=== PATIENT | male | born 1980 | race Two or more races ===

== ENCOUNTER 2024-02-08 18:29 | Inpatient (IN) | payer OTHER ==
[~2024-02-08] VITALS: Ht 177.8 cm; Wt 79.9 kg
[2024-02-08 20:09] LABS: BASOPHILS # (AUTO) 0.1 X10'3 (0-0.2); BASOPHILS % (AUTO) 1.1 % (0-1); EOSINOPHILS # (AUTO) 0.1 X10'3 (0-0.9); EOSINOPHILS % (AUTO) 1.6 % (0-6); HEMATOCRIT 40.6 % (42.0-52.0); HEMOGLOBIN 14.4 g/dl (14.0-17.9); LYMPHOCYTES # (AUTO) 1.9 X10'3 (1.1-4.8); LYMPHOCYTES % (AUTO) 26.1 % (21-51); MEAN CORPUSCULAR HEMOGLOBIN 37.2 PG (27.0-31.0); MEAN CORPUSCULAR HGB CONC 35.3 g/dL (33.0-36.5); MEAN CORPUSCULAR VOLUME 105.3 FL (78-98); MEAN PLATELET VOLUME 8.2 FL (7.4-10.4); MONOCYTES # (AUTO) 0.6 X10'3 (0-0.9); MONOCYTES % (AUTO) 8.1 % (2-12); NEUTROPHILS # (AUTO) 4.6 X10'3 (1.8-7.7); NEUTROPHILS % (AUTO) 63.1 % (42-75); PLATELET COUNT 190 X10'3 (140-440); RED BLOOD COUNT 3.86 X10'6 (4.70-6.10); RED CELL DISTRIBUTION WIDTH 15.5 % (11.5-14.5); WHITE BLOOD COUNT 7.3 X10'3 (4.5-11.0)
[2024-02-08 20:15] LABS: BILIRUBIN,URINE NEGATIVE (Neg); CLARITY,URINE SLIGHTLY CLOUDY (Clear); COLOR,URINE YELLOW (Yellow); GLUCOSE, URINE NEGATIVE (Neg); KETONES,URINE TRACE mg/dl (Neg); LEUKOCYTE ESTERASE ,URINE NEGATIVE (Neg); NITRITES, URINE NEGATIVE (Neg); OCCULT BLOOD,URINE NEGATIVE (Neg); PH,URINE 5.5 (4.8-8.0); PROTEIN,URINE TRACE mg/dl (Neg); UROBILINOGEN,URINE 0.2 E.U/dL (0.2-1.0)
[2024-02-08 20:19] LABS: UA COLLECTION TYPE VOIDED
[2024-02-08 20:21] LABS: ALBUMIN 4.2 G/DL (3.4-5.0); ANION GAP 17 (8-16); BLOOD UREA NITROGEN 11 MG/DL (7-18); BUN/CREATININE RATIO 6.5 (10.0-20.0); CALCIUM 9.5 MG/DL (8.5-10.1); CHLORIDE 96 MMOL/L (99-107); ETHANOL 253 MG/DL (<10); GLUCOSE 110 MG/DL (70-104); POTASSIUM 3.2 MMOL/L (3.5-5.1); SODIUM 136 MMOL/L (135-145); THYROID STIMULATING HORMONE 1.26 ulU/ml (0.34-4.50); TOTAL CARBON DIOXIDE 23.5 MMOL/L (24-32); eCRCL 59 ML/MIN; eGFR 45 ML/MIN
[2024-02-08 20:29] LABS: URINE AMPHETAMINE SCREEN NEGATIVE (Neg); URINE BARBITUATE SCREEN NEGATIVE (Neg); URINE BENZODIAZEPINES SCREEN NEGATIVE (Neg); URINE CANNABINOID SCREEN NEGATIVE (Neg); URINE COCAINE SCREEN NEGATIVE (Neg); URINE METHADONE SCREEN NEGATIVE (Neg); URINE OPIATE SCREEN NEGATIVE (Neg); URINE PHENCYCLIDINE SCREEN NEGATIVE (Neg)
[2024-02-08 20:30] LABS: BACTERIA,URINE FEW /HPF (Neg); RBC,URINE NONE SEEN /HPF (0-2); SQUAMOUS EPITHELIAL CELL,UR FEW /LPF (FEW); WBC,URINE 0-4 /HPF (0-4)
[2024-02-08 20:44] LABS: ALANINE AMINOTRANSFERASE 60 U/L (12-78); ALBUMIN/GLOBULIN RATIO 1.4 (1.1-1.5); ALKALINE PHOSPHATASE 113 IU/L (46-116); ASPARTATE AMINO TRANSFERASE 100 U/L (10-37); BILIRUBIN,TOTAL 0.6 MG/DL (0.1-1.0); TOTAL PROTEIN 7.3 G/DL (6.4-8.2)
[2024-02-08] MEDS ORDERED: LISI40TA13 PO (23:47)
[2024-02-09] MEDS ORDERED: potassium Cl 20 mEq SR tablet PO PRN (00:45)
[2024-02-09] MEDS ORDERED: magnesium sulf-water 4G/100mL 100 ML IV PRN (00:45)
[2024-02-09] MEDS ORDERED: dextrose 50%-water 50ml dispensing syringe IV PRN (00:45)
[2024-02-09] MEDS ORDERED: potassium Cl 40MEQ/1/2NS 520ml 520 ML IV PRN (00:45)
[2024-02-09] MEDS ORDERED: acetaminophen 325mg tablet PO PRN (00:45)
[2024-02-09] MEDS ORDERED: magnesium sulf-water 2g/50mL 50 ML IV PRN (00:45)
[2024-02-09] MEDS ORDERED: loperamide 2mg capsule PO PRN (00:45)
[2024-02-09] MEDS ORDERED: dicyclomine 10 MG capsule PO PRN (00:45)
[2024-02-09] MEDS ORDERED: magnesium Cl slow-release 64mg tablet PO PRN (00:45)
[2024-02-09] MEDS ORDERED: haloperidol lactate 5mg/ml inj IM PRN (00:45)
[2024-02-09] MEDS: ringers solution, lacted 1,000 ML IV SCH (01:18)
[2024-02-09] MEDS: diazepam 5mg tablet PO ONE ×2 (01:20→09:08)
[2024-02-09 01:43] LABS: HEMOGLOBIN A1C 4.7 % (4.5-6.2)
[2024-02-09] MEDS: tizanidine 4mg tablet PO ONE (01:43)
[2024-02-09] MEDS: ringers solution, lacted 1,000 ML IV STA (05:19)
[2024-02-09] MEDS: K and/or MAG REPLACEMENT MC SCH (08:00)
[2024-02-09] MEDS: folic acid 1mg/0.2ml inj IV SCH (09:07)
[2024-02-09] MEDS: lisinopril 20mg tablet PO SCH (09:07)
[2024-02-09] MEDS: multivitamins, therapeutics tablet PO SCH (09:08)
[2024-02-09] MEDS: nicotine 7mg patch - 24hr TD SCH (09:08)
[2024-02-09] MEDS: potassium Cl 20 mEq SR tablet PO PRN (09:08)
[2024-02-09] MEDS: thiamine 100mg/ml 2ml inj. IV SCH (09:08)
[2024-02-09 19:20] VITALS: BP 139/85; PULSE 83; RESP 16; TEMP 98.8; O2SAT 99
[2024-02-09 20:00] VITALS: RESP 18; O2SAT 96
[2024-02-09] MEDS ORDERED: temazepam 15mg capsule PO PRN (21:00)
[2024-02-09 22:00] VITALS: BP 146/88; PULSE 71; RESP 16; TEMP 98.3; O2SAT 98
[2024-02-10] MEDS: LORazepam 2 mg/ml vial IV PRN ×2 (00:08→12:25)
[2024-02-10 08:00] VITALS: RESP 16; O2SAT 99
[2024-02-10 09:14] LABS: BASOPHILS # (AUTO) 0.1 X10'3 (0-0.2); BASOPHILS % (AUTO) 1.1 % (0-1); EOSINOPHILS # (AUTO) 0.1 X10'3 (0-0.9); EOSINOPHILS % (AUTO) 2.2 % (0-6); HEMATOCRIT 35.8 % (42.0-52.0); HEMOGLOBIN 12.7 g/dl (14.0-17.9); LYMPHOCYTES # (AUTO) 1.3 X10'3 (1.1-4.8); LYMPHOCYTES % (AUTO) 22.2 % (21-51); MEAN CORPUSCULAR HEMOGLOBIN 38.3 PG (27.0-31.0); MEAN CORPUSCULAR HGB CONC 35.4 g/dL (33.0-36.5); MEAN CORPUSCULAR VOLUME 108.3 FL (78-98); MONOCYTES # (AUTO) 0.5 X10'3 (0-0.9); MONOCYTES % (AUTO) 8.3 % (2-12); NEUTROPHILS % (AUTO) 66.2 % (42-75); PLATELET COUNT 144 X10'3 (140-440); RED BLOOD COUNT 3.31 X10'6 (4.70-6.10)
[2024-02-10 09:24] LABS: ALANINE AMINOTRANSFERASE 48 U/L (12-78); ALBUMIN 3.4 G/DL (3.4-5.0); ALBUMIN/GLOBULIN RATIO 1.3 (1.1-1.5); ALKALINE PHOSPHATASE 72 IU/L (46-116); ANION GAP 8 (8-16); ASPARTATE AMINO TRANSFERASE 52 U/L (10-37); BILIRUBIN,TOTAL 1.2 MG/DL (0.1-1.0); BLOOD UREA NITROGEN 8 MG/DL (7-18); BUN/CREATININE RATIO 8.2 (10.0-20.0); CALCIUM 9.2 MG/DL (8.5-10.1); CHLORIDE 102 MMOL/L (99-107); CHOL/HDL RATIO 3.4 (0.00-4.99); CHOLESTEROL 216 MG/DL (0-200); CREATININE 0.98 MG/DL (0.60-1.10); GLUCOSE 93 MG/DL (70-104); HDL CHOLESTEROL 63 MG/DL (35-60); LDL CHOLESTEROL 117 MG/DL (50-100); MAGNESIUM 1.7 MG/DL (1.5-2.4); PHOSPHORUS 3.2 MG/DL (2.3-4.5); POTASSIUM 3.3 MMOL/L (3.5-5.1); SODIUM 139 MMOL/L (135-145); TOTAL CARBON DIOXIDE 28.6 MMOL/L (24-32); TOTAL PROTEIN 6.1 G/DL (6.4-8.2); TRIGLYCERIDES 106 MG/DL (20-135); eCRCL 102 ML/MIN; eGFR 84 ML/MIN
[2024-02-10] MEDS: metoclopramide 5 mg/ml inj IV PRN (10:26)
[2024-02-10 17:05] VITALS: BP 160/99; PULSE 78; RESP 18; TEMP 98.1; O2SAT 98
[2024-02-10 18:00] VITALS: BP 158/101; PULSE 78; RESP 18; TEMP 98.1; O2SAT 98
[2024-02-10] MEDS: LORazepam 1 MG tablet PO PRN (18:00)
[2024-02-10 20:00] VITALS: RESP 18; O2SAT 98
[2024-02-10 22:00] VITALS: BP 153/92; PULSE 56; RESP 20; TEMP 98.4; O2SAT 97
[2024-02-10] MEDS: pantoprazole 40mg Tablet.DR PO SCH (22:03)
[2024-02-11 06:00] VITALS: BP 190/110; PULSE 69; RESP 18; TEMP 97.4; O2SAT 100
[2024-02-11 07:07] LABS: BASOPHILS # (AUTO) 0.1 X10'3 (0-0.2); BASOPHILS % (AUTO) 1.2 % (0-1); EOSINOPHILS # (AUTO) 0.1 X10'3 (0-0.9); HEMATOCRIT 37.1 % (42.0-52.0); HEMOGLOBIN 12.9 g/dl (14.0-17.9); LYMPHOCYTES # (AUTO) 1.5 X10'3 (1.1-4.8); LYMPHOCYTES % (AUTO) 22.6 % (21-51); MEAN CORPUSCULAR HEMOGLOBIN 37.3 PG (27.0-31.0); MEAN CORPUSCULAR HGB CONC 34.7 g/dL (33.0-36.5); MEAN CORPUSCULAR VOLUME 107.5 FL (78-98); MEAN PLATELET VOLUME 8.6 FL (7.4-10.4); MONOCYTES # (AUTO) 0.7 X10'3 (0-0.9); MONOCYTES % (AUTO) 10.6 % (2-12); NEUTROPHILS # (AUTO) 4.1 X10'3 (1.8-7.7); NEUTROPHILS % (AUTO) 63.6 % (42-75); PLATELET COUNT 163 X10'3 (140-440); RED BLOOD COUNT 3.46 X10'6 (4.70-6.10); RED CELL DISTRIBUTION WIDTH 15.1 % (11.5-14.5); WHITE BLOOD COUNT 6.4 X10'3 (4.5-11.0)
[2024-02-11 07:15] LABS: ALANINE AMINOTRANSFERASE 44 U/L (12-78); ALBUMIN 3.5 G/DL (3.4-5.0); ALBUMIN/GLOBULIN RATIO 1.2 (1.1-1.5); ALKALINE PHOSPHATASE 112 IU/L (46-116); ANION GAP 4 (8-16); ASPARTATE AMINO TRANSFERASE 37 U/L (10-37); BILIRUBIN,TOTAL 0.4 MG/DL (0.1-1.0); BLOOD UREA NITROGEN 6 MG/DL (7-18); BUN/CREATININE RATIO 6.4 (10.0-20.0); CALCIUM 9.3 MG/DL (8.5-10.1); CHLORIDE 101 MMOL/L (99-107); CREATININE 0.94 MG/DL (0.60-1.10); GLUCOSE 104 MG/DL (70-104); MAGNESIUM 1.6 MG/DL (1.5-2.4); PHOSPHORUS 2.6 MG/DL (2.3-4.5); POTASSIUM 3.9 MMOL/L (3.5-5.1); SODIUM 139 MMOL/L (135-145); TOTAL CARBON DIOXIDE 33.7 MMOL/L (24-32); TOTAL PROTEIN 6.4 G/DL (6.4-8.2); eCRCL 107 ML/MIN; eGFR 88 ML/MIN
[2024-02-11 08:00] VITALS: RESP 18; O2SAT 100
[2024-02-11] MEDS: pantoprazole 40mg Tablet.DR PO SCH (08:25)
[2024-02-11 10:00] VITALS: BP 179/109; PULSE 83; RESP 20; TEMP 97; O2SAT 100
[2024-02-11] MEDS ORDERED: LORA-269 PO (10:00)
[2024-02-11] MEDS ORDERED: PANT40TA54 PO (11:55)
[2024-02-11] MEDS ORDERED: FOLI1TAB27 PO (11:55)
[2024-02-11] MEDS ORDERED: thiamine tablet PO (11:55)
[2024-02-13] MEDS ORDERED: folic acid 1mg tablet PO SCH (08:00)
[2024-02-13] MEDS ORDERED: thiamine 100mg tablet PO SCH (08:00)
== END 2024-02-11 12:37 | disposition home or self-care (01) | DRG 683 ==
LOC: ER 18:31 → ED HOLD 02-09 00:52 → ORTHO 4S 02-09 19:15
PROVIDERS: ADMIT Student in an Organized Health Care Education/Training Program; ATTEND Internal Medicine
PROC: 4A00X4Z Measurement of Central Nervous Electrical Activity, External Approach (ICD-10-PCS; principal; 2024-02-09)
DX: N17.9 Acute kidney failure, unspecified (principal); F10.139 Alcohol abuse with withdrawal, unspecified; R44.3 Hallucinations, unspecified; F10.129 Alcohol abuse with intoxication, unspecified; E86.0 Dehydration; Z20.822 Contact with and (suspected) exposure to COVID-19; E87.6 Hypokalemia; I10 Essential (primary) hypertension
CPT/HCPCS: 36415; 70450; 80053; 80061; 80305; 80320; 81001; 82140; 82948; 83036; 83735; 84100; 84443; 85025; 87081; 87811; 93005; 95816; 99285; G0378; J2060; J2765; J3411; J3490; J7120